=== PATIENT | female | born 1985 | race Caucasian/White ===

== ENCOUNTER 2018-02-01 07:42 | Emergency (ER) | payer MEDICAID ==
[2018-02-01 08:38] LABS: ADD UMIC YES; UR ASCORBIC ACID NEGATIVE (NEGATIVE); UR BACTERIA FEW /HPF (NONE SEEN); UR BILIRUBIN (Dip) NEGATIVE (NEGATIVE); UR BLOOD (Dip) 2+ mg/dL (NEGATIVE); UR CLARITY CLEAR (CLEAR); UR COLOR STRAW (YELLOW); UR GLUCOSE (Dip) NEGATIVE (NEGATIVE); UR KETONES (Dip) NEGATIVE (NEGATIVE); UR LEUKOCYTE ESTERASE (Dip) NEGATIVE Leu/ul (NEGATIVE); UR NITRITE (Dip) NEGATIVE (NEGATIVE); UR RBC 3 /HPF (0-5); UR SPECIFIC GRAVITY (Dip) 1.008 (1.003-1.030); UR SQUAMOUS EPITHELIAL CELL FEW /HPF (FEW); UR TOTAL PROTEIN (Dip) NEGATIVE (NEGATIVE); UR UROBILINOGEN (Dip) NEGATIVE (NEGATIVE); UR WBC 2 /HPF (0-5)
[2018-02-01 08:40] LABS: ADD MAN DIFF? NO
[2018-02-01 08:43] LABS: BASOPHILS % 0.3 % (0.0-2.0); EOSINOPHILS # 0.1 10^3/ul (0.0-0.5); EOSINOPHILS % 0.6 % (0.0-7.0); HEMATOCRIT 40.4 % (37.0-47.0); HEMOGLOBIN 13.2 g/dl (12.0-16.0); LYMPHOCYTES # 1.5 10^3/ul (0.8-2.9); LYMPHOCYTES % 10.7 % (15.0-51.0); MEAN CORPUSCULAR HEMOGLOBIN 29.1 pg (29.0-33.0); MEAN CORPUSCULAR HGB CONC 32.7 g/dl (32.0-37.0); MEAN CORPUSCULAR VOLUME 89.2 fl (82.0-101.0); MEAN PLATELET VOLUME 10.2 fl (7.4-10.4); MONOCYTES % 7.4 % (0.0-11.0); NEUTROPHIL # 11.3 10^3/ul (1.6-7.5); NEUTROPHILS % 80.7 % (39.0-77.0); PLATELET COUNT 356 10^3/UL (140-415); RED BLOOD COUNT 4.53 10^6/ul (4.20-5.40)
[2018-02-01 08:52] LABS: POSITIVE DIFF @See below
[2018-02-01] MEDS: SODIUM CHLORIDE 0.9% 1L BAG IV* (08:52)
[2018-02-01 09:01] LABS: INR 1.06; PROTIME 13.9 Sec (11.9-14.9); PT RATIO 1.1
[2018-02-01] MEDS: KETOROLAC 15 MG INJ IV (09:03)
[2018-02-01] MEDS: ONDANSETRON 4 MG INJ IV (09:03)
[2018-02-01 09:10] LABS: ANION GAP 12 (5-13); BLOOD UREA NITROGEN 16 mg/dl (7-20); CALCIUM 9.4 mg/dl (8.4-10.2); CARBON DIOXIDE 20 mmol/L (21-31); CHLORIDE 110 mmol/L (97-110); CREATININE 0.97 mg/dl (0.44-1.00); Estimated GFR > 60 mL/min (>60); GLUCOSE 107 mg/dl (70-220); POTASSIUM 4.3 mmol/L (3.5-5.1); SODIUM 142 mmol/L (135-144)
[2018-02-01 09:21] LABS: TROPONIN-I < 0.012 ng/ml (0.000-0.120)
[2018-02-01] MEDS: FENTAnyl 50 MCG/ML VIAL IV (10:01)
[2018-02-01 11:08] LABS: ALANINE AMINOTRANSFERASE 22 IU/L (13-69); ALBUMIN 4.7 g/dl (3.3-4.9); ALKALINE PHOSPHATASE 79 IU/L (42-121); ASPARTATE AMINO TRANSFERASE 20 IU/L (15-46); BILIRUBIN,INDIRECT 0.2 mg/dl (0-1.1); BILIRUBIN,TOTAL 0.2 mg/dl (0.2-1.3); LIPASE 47 U/L (23-300); TOTAL PROTEIN 7.9 g/dl (6.1-8.1)
[2018-02-01] MEDS: IOHEXOL 300MG/ML 150 ML BTL (11:24)
[2018-02-01] MEDS: SOD CHLORIDE 0.9% 100 ML (11:24)
[2018-02-01] MEDS: morphine 4 MG/ML VIAL IV (11:33)
[2018-02-01] MEDS: CEFTRIAXONE 1 GM/50 ML (PMX) 50 ML IVPB (14:28)
== END 2018-02-01 15:01 | disposition home or self-care (01) ==
LOC: E/R 07:42
DX: N12 Tubulo-interstitial nephritis, not specified as acute or chronic (principal); N39.0 Urinary tract infection, site not specified; D72.829 Elevated white blood cell count, unspecified; N20.0 Calculus of kidney; N13.30 Unspecified hydronephrosis; R40.2252 Coma scale, best verbal response, oriented, at arrival to emergency department; R40.2142 Coma scale, eyes open, spontaneous, at arrival to emergency department; R40.2362 Coma scale, best motor response, obeys commands, at arrival to emergency department
CPT/HCPCS: 36415; 71045; 74177; 80048; 80076; 81001; 81025; 83605; 83690; 84484; 85025; 85610; 85730; 87040; 87086; 93005; 96374; 96375; 99285-25

== ENCOUNTER 2018-02-02 22:20 | Inpatient (IN) | payer MEDICAID ==
[2018-02-02 22:50] LABS: ADD UMIC YES; UR ASCORBIC ACID NEGATIVE (NEGATIVE); UR BILIRUBIN (Dip) NEGATIVE (NEGATIVE); UR BLOOD (Dip) 3+ mg/dL (NEGATIVE); UR CLARITY SLIGHTLY CLOUDY (CLEAR); UR COLOR YELLOW (YELLOW); UR GLUCOSE (Dip) NEGATIVE (NEGATIVE); UR KETONES (Dip) NEGATIVE (NEGATIVE); UR LEUKOCYTE ESTERASE (Dip) 1+ Leu/ul (NEGATIVE); UR MUCUS FEW /HPF (NONE SEEN); UR NITRITE (Dip) NEGATIVE (NEGATIVE); UR RBC 15 /HPF (0-5); UR SPECIFIC GRAVITY (Dip) 1.016 (1.003-1.030); UR SQUAMOUS EPITHELIAL CELL FEW /HPF (FEW); UR TOTAL PROTEIN (Dip) 1+ mg/dl (NEGATIVE); UR UROBILINOGEN (Dip) NEGATIVE (NEGATIVE); UR WBC 7 /HPF (0-5)
[2018-02-02] MEDS: SOD CHLORIDE 0.9% 500 ML IV (23:13)
[2018-02-02] MEDS: SODIUM CHLORIDE 0.9% 1L BAG IV* (23:15)
[2018-02-02] MEDS: CEFEPIME 2GM/50 ML (PMX) 50 ML IVPB (23:16)
[2018-02-02 23:21] LABS: ADD MAN DIFF? NO
[2018-02-02 23:24] LABS: BASOPHILS % 0.2 % (0.0-2.0); EOSINOPHILS # 0.2 10^3/ul (0.0-0.5); EOSINOPHILS % 1.4 % (0.0-7.0); HEMATOCRIT 35.3 % (37.0-47.0); HEMOGLOBIN 11.8 g/dl (12.0-16.0); LYMPHOCYTES # 1.4 10^3/ul (0.8-2.9); LYMPHOCYTES % 10.9 % (15.0-51.0); MEAN CORPUSCULAR HEMOGLOBIN 29.7 pg (29.0-33.0); MEAN CORPUSCULAR HGB CONC 33.4 g/dl (32.0-37.0); MEAN CORPUSCULAR VOLUME 88.9 fl (82.0-101.0); MEAN PLATELET VOLUME 9.4 fl (7.4-10.4); MONOCYTE # 0.9 10^3/ul (0.3-0.9); MONOCYTES % 6.6 % (0.0-11.0); NEUTROPHIL # 10.3 10^3/ul (1.6-7.5); NEUTROPHILS % 80.5 % (39.0-77.0); PLATELET COUNT 292 10^3/UL (140-415); RED BLOOD COUNT 3.97 10^6/ul (4.20-5.40); RED CELL DISTRIBUTION WIDTH 12.8 % (11.5-14.5)
[2018-02-02 23:24] LABS: WHITE BLOOD COUNT 12.8 10^3/ul (4.8-10.8)
[2018-02-02 23:42] LABS: ALANINE AMINOTRANSFERASE 29 IU/L (13-69); ALBUMIN 4.2 g/dl (3.3-4.9); ALBUMIN/GLOBULIN RATIO 1.61; ALKALINE PHOSPHATASE 70 IU/L (42-121); ANION GAP 13 (5-13); ASPARTATE AMINO TRANSFERASE 23 IU/L (15-46); BILIRUBIN,INDIRECT 0.2 mg/dl (0-1.1); BILIRUBIN,TOTAL 0.2 mg/dl (0.2-1.3); BLOOD UREA NITROGEN 11 mg/dl (7-20); CALCIUM 8.9 mg/dl (8.4-10.2); CARBON DIOXIDE 20 mmol/L (21-31); CHLORIDE 104 mmol/L (97-110); CREATININE 0.84 mg/dl (0.44-1.00); Estimated GFR > 60 mL/min (>60); GLUCOSE 101 mg/dl (70-220); LIPASE 21 U/L (23-300); POTASSIUM 4.5 mmol/L (3.5-5.1); SODIUM 137 mmol/L (135-144); TOTAL PROTEIN 6.8 g/dl (6.1-8.1)
[2018-02-02 23:43] LABS: INR 0.96; PROTIME 12.9 Sec (11.9-14.9)
[2018-02-02 23:53] LABS: TROPONIN-I < 0.012 ng/ml (0.000-0.120)
[2018-02-03] MEDS: ONDANSETRON 4 MG INJ IV (00:12)
[2018-02-03] MEDS: morphine 4 MG/ML VIAL IV (00:12)
[2018-02-03] MEDS: VANCOMYCIN 1 GM (PMX) 250 ML IVPB (00:12)
[2018-02-03] MEDS: KETOROLAC 30 MG INJ IV (00:13)
[2018-02-03] MEDS ORDERED: NACL 0.9% 3 ML SYG IV (01:00)
[2018-02-03] MEDS ORDERED: HYDROCODONE/APAP (5/325) TAB PO (01:00)
[2018-02-03] MEDS ORDERED: ONDANSETRON 4 MG INJ IV (01:00)
[2018-02-03] MEDS: SOD CHLORIDE 0.9% 1,000 ML IV ×3 (01:40→14:22)
[2018-02-03] MEDS: morphine 2 MG INJ IV ×5 (02:53→23:28)
[2018-02-03] MEDS: HYDROCODONE/APAP (5/325) TAB PO ×2 (03:55→09:58)
[2018-02-03 06:59] LABS: ADD MAN DIFF? NO
[2018-02-03 07:07] LABS: WHITE BLOOD COUNT 9.1 10^3/ul (4.8-10.8)
[2018-02-03 07:07] LABS: BASOPHILS % 0.3 % (0.0-2.0); EOSINOPHILS # 0.1 10^3/ul (0.0-0.5); EOSINOPHILS % 1.1 % (0.0-7.0); HEMATOCRIT 30.1 % (37.0-47.0); HEMOGLOBIN 9.7 g/dl (12.0-16.0); LYMPHOCYTES # 2.1 10^3/ul (0.8-2.9); LYMPHOCYTES % 22.7 % (15.0-51.0); MEAN CORPUSCULAR HEMOGLOBIN 29.3 pg (29.0-33.0); MEAN CORPUSCULAR HGB CONC 32.2 g/dl (32.0-37.0); MEAN CORPUSCULAR VOLUME 90.9 fl (82.0-101.0); MEAN PLATELET VOLUME 9.7 fl (7.4-10.4); MONOCYTE # 0.9 10^3/ul (0.3-0.9); NEUTROPHILS % 65.6 % (39.0-77.0); PLATELET COUNT 240 10^3/UL (140-415); RED BLOOD COUNT 3.31 10^6/ul (4.20-5.40)
[2018-02-03 07:43] LABS: ALANINE AMINOTRANSFERASE 29 IU/L (13-69); ALBUMIN 2.9 g/dl (3.3-4.9); ALBUMIN/GLOBULIN RATIO 1.03; ALKALINE PHOSPHATASE 57 IU/L (42-121); ANION GAP 5 (5-13); ASPARTATE AMINO TRANSFERASE 18 IU/L (15-46); BILIRUBIN,INDIRECT 0.3 mg/dl (0-1.1); BILIRUBIN,TOTAL 0.3 mg/dl (0.2-1.3); BLOOD UREA NITROGEN 8 mg/dl (7-20); CALCIUM 7.7 mg/dl (8.4-10.2); CARBON DIOXIDE 22 mmol/L (21-31); CHLORIDE 114 mmol/L (97-110); CREATININE 0.69 mg/dl (0.44-1.00); Estimated GFR > 60 mL/min (>60); GLUCOSE 90 mg/dl (70-220); POTASSIUM 4.3 mmol/L (3.5-5.1); SODIUM 141 mmol/L (135-144); TOTAL PROTEIN 5.7 g/dl (6.1-8.1)
[2018-02-03 07:47] LABS: LACTIC ACID 0.6 mmol/L (0.5-2.0)
[2018-02-03] MEDS: LACTULOSE 30ML CUP PO ×4 (07:51→23:33)
[2018-02-03] MEDS: BISACODYL (EC) 5 MG TAB PO (07:51)
[2018-02-03] MEDS ORDERED: VANCOMYCIN IV PER PHARMACY XX ×2 (09:00→12:00)
[2018-02-03] MEDS: TAMSULOSIN (SR) 0.4 MG CAP PO (09:01)
[2018-02-03] MEDS: VANCOMYCIN 750 MG in SOD CHLORIDE 0.9% 150 ML IVPB ×2 (09:01→16:59)
[2018-02-03] MEDS: CEFEPIME 1GM/50 ML (PMX) 50 ML IVPB ×2 (11:12→20:14)
[2018-02-03] MEDS: MAGNESIUM HYDROXIDE 30ML CUP PO (12:26)
[2018-02-03] MEDS: DOCUSATE SODIUM 100 MG CAP PO (20:13)
[2018-02-03] MEDS: ACETAMINOPHEN 325 MG TAB PO (21:10)
[2018-02-04] MEDS: VANCOMYCIN 750 MG in SOD CHLORIDE 0.9% 150 ML IVPB (00:34)
[2018-02-04] MEDS: HYDROCODONE/APAP (5/325) TAB PO ×2 (01:46→08:31)
[2018-02-04] MEDS: LACTULOSE 30ML CUP PO ×4 (05:49→23:53)
[2018-02-04] MEDS: morphine 2 MG INJ IV (07:16)
[2018-02-04 08:04] LABS: ADD MAN DIFF? NO
[2018-02-04 08:19] LABS: BASOPHILS % 0.3 % (0.0-2.0); EOSINOPHILS # 0.2 10^3/ul (0.0-0.5); EOSINOPHILS % 1.9 % (0.0-7.0); HEMATOCRIT 33.1 % (37.0-47.0); HEMOGLOBIN 10.9 g/dl (12.0-16.0); LYMPHOCYTES # 1.8 10^3/ul (0.8-2.9); LYMPHOCYTES % 18.1 % (15.0-51.0); MEAN CORPUSCULAR HGB CONC 32.9 g/dl (32.0-37.0); MEAN PLATELET VOLUME 9.3 fl (7.4-10.4); MONOCYTE # 1.2 10^3/ul (0.3-0.9); MONOCYTES % 11.8 % (0.0-11.0); NEUTROPHIL # 6.8 10^3/ul (1.6-7.5); NEUTROPHILS % 67.6 % (39.0-77.0); PLATELET COUNT 289 10^3/UL (140-415); RED BLOOD COUNT 3.76 10^6/ul (4.20-5.40); RED CELL DISTRIBUTION WIDTH 12.8 % (11.5-14.5)
[2018-02-04 08:19] LABS: WHITE BLOOD COUNT 10.1 10^3/ul (4.8-10.8)
[2018-02-04 08:30] LABS: ANION GAP 8 (5-13); BLOOD UREA NITROGEN 3 mg/dl (7-20); CALCIUM 8.1 mg/dl (8.4-10.2); CARBON DIOXIDE 22 mmol/L (21-31); CHLORIDE 110 mmol/L (97-110); CREATININE 0.55 mg/dl (0.44-1.00); Estimated GFR > 60 mL/min (>60); GLUCOSE 94 mg/dl (70-220); POTASSIUM 3.8 mmol/L (3.5-5.1); SODIUM 140 mmol/L (135-144)
[2018-02-04] MEDS: CEFEPIME 1GM/50 ML (PMX) 50 ML IVPB ×2 (08:30→21:55)
[2018-02-04] MEDS: TAMSULOSIN (SR) 0.4 MG CAP PO (08:30)
[2018-02-04] MEDS: DOCUSATE SODIUM 100 MG CAP PO ×2 (08:30→21:55)
[2018-02-04 08:39] LABS: VANCOMYCIN,TROUGH 7.4 ug/ml (10.0-20.0)
[2018-02-04] MEDS ORDERED: VANCOMYCIN 1 GM 250 ML IVPB (09:00)
[2018-02-04] MEDS: VANCOMYCIN 1 GM 250 ML IVPB ×2 (10:07→17:54)
[2018-02-04] MEDS: HYDROmorphONE 1 MG/ML SYG IV ×4 (10:19→23:52)
[2018-02-04] MEDS: SOD CHLORIDE 0.9% 1,000 ML IV ×2 (10:20→20:30)
[2018-02-05] MEDS: VANCOMYCIN 1 GM 250 ML IVPB ×3 (02:21→17:23)
[2018-02-05] MEDS: SOD CHLORIDE 0.9% 1,000 ML IV ×4 (02:22→22:07)
[2018-02-05] MEDS: HYDROmorphONE 1 MG/ML SYG IV ×5 (05:16→22:31)
[2018-02-05] MEDS: LACTULOSE 30ML CUP PO ×3 (05:16→18:09)
[2018-02-05] MEDS ORDERED: NA PHOSPHATE/BIPHOS 133 ML ENEMA PR (06:30)
[2018-02-05] MEDS ORDERED: BISACODYL 10 MG SUPP PR (06:30)
[2018-02-05 07:42] LABS: ADD MAN DIFF? NO
[2018-02-05 07:46] LABS: WHITE BLOOD COUNT 11.7 10^3/ul (4.8-10.8)
[2018-02-05 07:46] LABS: BASOPHILS % 0.3 % (0.0-2.0); EOSINOPHILS # 0.1 10^3/ul (0.0-0.5); EOSINOPHILS % 1.2 % (0.0-7.0); HEMATOCRIT 31.8 % (37.0-47.0); HEMOGLOBIN 10.7 g/dl (12.0-16.0); LYMPHOCYTES # 1.6 10^3/ul (0.8-2.9); LYMPHOCYTES % 13.7 % (15.0-51.0); MEAN CORPUSCULAR HEMOGLOBIN 29.5 pg (29.0-33.0); MEAN CORPUSCULAR HGB CONC 33.6 g/dl (32.0-37.0); MEAN CORPUSCULAR VOLUME 87.6 fl (82.0-101.0); MEAN PLATELET VOLUME 9.2 fl (7.4-10.4); MONOCYTE # 1.1 10^3/ul (0.3-0.9); MONOCYTES % 9.8 % (0.0-11.0); NEUTROPHIL # 8.7 10^3/ul (1.6-7.5); NEUTROPHILS % 74.6 % (39.0-77.0); PLATELET COUNT 297 10^3/UL (140-415); RED BLOOD COUNT 3.63 10^6/ul (4.20-5.40); RED CELL DISTRIBUTION WIDTH 12.6 % (11.5-14.5)
[2018-02-05 08:09] LABS: ANION GAP 9 (5-13); BLOOD UREA NITROGEN 6 mg/dl (7-20); CALCIUM 8.1 mg/dl (8.4-10.2); CARBON DIOXIDE 25 mmol/L (21-31); CHLORIDE 107 mmol/L (97-110); CREATININE 0.82 mg/dl (0.44-1.00); Estimated GFR > 60 mL/min (>60); GLUCOSE 98 mg/dl (70-220); MAGNESIUM 2.1 mg/dl (1.7-2.5); POTASSIUM 4.1 mmol/L (3.5-5.1); SODIUM 141 mmol/L (135-144)
[2018-02-05] MEDS: CEFEPIME 1GM/50 ML (PMX) 50 ML IVPB ×2 (08:43→20:26)
[2018-02-05] MEDS: TAMSULOSIN (SR) 0.4 MG CAP PO (08:43)
[2018-02-05] MEDS: DOCUSATE SODIUM 100 MG CAP PO ×2 (08:43→20:26)
[2018-02-05 17:21] LABS: VANCOMYCIN,TROUGH 20.7 ug/ml (10.0-20.0)
[2018-02-05] MEDS: VANCOMYCIN 750 MG in SOD CHLORIDE 0.9% 150 ML IVPB (22:15)
[2018-02-06] MEDS: LACTULOSE 30ML CUP PO ×4 (00:20→17:28)
[2018-02-06] MEDS: HYDROmorphONE 1 MG/ML SYG IV ×3 (03:49→13:39)
[2018-02-06] MEDS: VANCOMYCIN 750 MG in SOD CHLORIDE 0.9% 150 ML IVPB ×2 (06:14→13:34)
[2018-02-06 06:22] LABS: ADD MAN DIFF? NO
[2018-02-06 06:36] LABS: BASOPHILS % 0.3 % (0.0-2.0); EOSINOPHILS # 0.2 10^3/ul (0.0-0.5); EOSINOPHILS % 1.6 % (0.0-7.0); HEMATOCRIT 30.8 % (37.0-47.0); HEMOGLOBIN 10.2 g/dl (12.0-16.0); LYMPHOCYTES # 1.8 10^3/ul (0.8-2.9); LYMPHOCYTES % 16.9 % (15.0-51.0); MEAN CORPUSCULAR HEMOGLOBIN 29.6 pg (29.0-33.0); MEAN CORPUSCULAR HGB CONC 33.1 g/dl (32.0-37.0); MEAN CORPUSCULAR VOLUME 89.3 fl (82.0-101.0); MEAN PLATELET VOLUME 9.3 fl (7.4-10.4); MONOCYTES % 9.5 % (0.0-11.0); NEUTROPHIL # 7.7 10^3/ul (1.6-7.5); NEUTROPHILS % 71.1 % (39.0-77.0); PLATELET COUNT 320 10^3/UL (140-415); RED BLOOD COUNT 3.45 10^6/ul (4.20-5.40); RED CELL DISTRIBUTION WIDTH 12.7 % (11.5-14.5)
[2018-02-06 06:36] LABS: WHITE BLOOD COUNT 10.9 10^3/ul (4.8-10.8)
[2018-02-06 07:30] LABS: ANION GAP 11 (5-13); BLOOD UREA NITROGEN 7 mg/dl (7-20); CALCIUM 7.7 mg/dl (8.4-10.2); CARBON DIOXIDE 22 mmol/L (21-31); CHLORIDE 108 mmol/L (97-110); CREATININE 0.86 mg/dl (0.44-1.00); Estimated GFR > 60 mL/min (>60); GLUCOSE 87 mg/dl (70-220); POTASSIUM 3.8 mmol/L (3.5-5.1); SODIUM 141 mmol/L (135-144)
[2018-02-06] MEDS: TAMSULOSIN (SR) 0.4 MG CAP PO (08:00)
[2018-02-06] MEDS: DOCUSATE SODIUM 100 MG CAP PO ×2 (08:00→21:58)
[2018-02-06] MEDS: CEFEPIME 1GM/50 ML (PMX) 50 ML IVPB ×2 (08:56→21:00)
[2018-02-06] MEDS: SOD CHLORIDE 0.9% 1,000 ML IV (12:52)
[2018-02-06 14:49] LABS: IRON 15 ug/dl (35-150)
[2018-02-06 14:58] LABS: % IRON SATURATION 5 % SAT (22-52); TOTAL IRON BINDING CAPACITY 285 ug/dl (241-421)
[2018-02-06 15:24] LABS: FERRITIN 66.1 ng/ml (6.2-137.0)
[2018-02-06] MEDS: CLINDAMYCIN 300 MG CAP PO (23:20)
[2018-02-07 05:08] LABS: ADD MAN DIFF? NO
[2018-02-07 05:26] LABS: BASOPHILS % 0.4 % (0.0-2.0); EOSINOPHILS # 0.4 10^3/ul (0.0-0.5); EOSINOPHILS % 4.1 % (0.0-7.0); HEMOGLOBIN 10.7 g/dl (12.0-16.0); LYMPHOCYTES # 2.6 10^3/ul (0.8-2.9); LYMPHOCYTES % 28.4 % (15.0-51.0); MEAN CORPUSCULAR HEMOGLOBIN 29.2 pg (29.0-33.0); MEAN CORPUSCULAR HGB CONC 33.4 g/dl (32.0-37.0); MEAN CORPUSCULAR VOLUME 87.2 fl (82.0-101.0); MEAN PLATELET VOLUME 9.2 fl (7.4-10.4); MONOCYTES % 11.3 % (0.0-11.0); NEUTROPHILS % 55.5 % (39.0-77.0); PLATELET COUNT 374 10^3/UL (140-415); RED BLOOD COUNT 3.67 10^6/ul (4.20-5.40); RED CELL DISTRIBUTION WIDTH 12.5 % (11.5-14.5)
[2018-02-07] MEDS: CLINDAMYCIN 300 MG CAP PO (05:36)
[2018-02-07 06:29] LABS: ALANINE AMINOTRANSFERASE 31 IU/L (13-69); ALBUMIN 3.4 g/dl (3.3-4.9); ALBUMIN/GLOBULIN RATIO 1.06; ALKALINE PHOSPHATASE 72 IU/L (42-121); ANION GAP 11 (5-13); ASPARTATE AMINO TRANSFERASE 18 IU/L (15-46); BILIRUBIN,INDIRECT 0.4 mg/dl (0-1.1); BILIRUBIN,TOTAL 0.4 mg/dl (0.2-1.3); BLOOD UREA NITROGEN 9 mg/dl (7-20); CALCIUM 8.8 mg/dl (8.4-10.2); CARBON DIOXIDE 24 mmol/L (21-31); CHLORIDE 108 mmol/L (97-110); CREATININE 0.58 mg/dl (0.44-1.00); Estimated GFR > 60 mL/min (>60); GLUCOSE 96 mg/dl (70-220); POTASSIUM 4.2 mmol/L (3.5-5.1); SODIUM 143 mmol/L (135-144); TOTAL PROTEIN 6.6 g/dl (6.1-8.1)
[2018-02-07 06:53] LABS: VANCOMYCIN,TROUGH < 5.0 ug/ml (10.0-20.0)
[2018-02-07] MEDS: DOCUSATE SODIUM 100 MG CAP PO (09:34)
[2018-02-07] MEDS: TAMSULOSIN (SR) 0.4 MG CAP PO (09:34)
[2018-02-07] MEDS ORDERED: CLINDAMYCIN 300 MG CAP PO (22:00)
== END 2018-02-07 12:18 | disposition home or self-care (01) | DRG 872 ==
LOC: E/R 22:20 → PP2 23:51
DX: A41.9 Sepsis, unspecified organism (principal); N13.6 Pyonephrosis; D50.9 Iron deficiency anemia, unspecified; R31.29 Other microscopic hematuria
CPT/HCPCS: 71045; 74018; 80048; 80053; 80202; 81001; 81025; 82355; 82728; 83540; 83605; 83690; 83735; 84484; 84703; 85025; 85610; 85730; 87040; 87081; 87086; 93005